=== PATIENT | male | born 1965 | race Two or more races ===

== ENCOUNTER 2023-07-23 17:04 | Emergency (ER) | payer OTHER ==
[~2023-07-23] VITALS: Ht 180.3 cm; Wt 89.0 kg
[2023-07-23 17:45] VITALS: BP 127/77; PULSE 72; RESP 16; O2SAT 96
== END 2023-07-23 19:56 | disposition left against medical advice (07) ==
LOC: ER 17:04
DX: R20.2 Paresthesia of skin (principal); M54.9 Dorsalgia, unspecified; M79.10 Myalgia, unspecified site; Z53.21 Procedure and treatment not carried out due to patient leaving prior to being seen by health care provider

== ENCOUNTER 2023-07-25 02:40 | Emergency (ER) | payer OTHER ==
[~2023-07-25] VITALS: Ht 180.3 cm; Wt 90.9 kg
[2023-07-25 03:00] VITALS: BP 145/94; PULSE 92; RESP 18; TEMP 98.2
[2023-07-25] MEDS ORDERED: GABA800T97 PO (03:57)
[2023-07-25] MEDS ORDERED: ACET500T58 PO (03:57)
[2023-07-25 04:05] VITALS: O2SAT 97
== END 2023-07-25 04:16 | disposition home or self-care (01) ==
LOC: ER 02:40
DX: M54.59 Other low back pain (principal); M54.12 Radiculopathy, cervical region; I10 Essential (primary) hypertension